=== PATIENT | female | born 1990 ===

== ENCOUNTER 2021-02-25 03:16 | Emergency (ER) | payer MEDICARE, OTHER ==
[~2021-02-25] VITALS: Ht 167.6 cm; Wt 59.0 kg
--- NOTE | 2021-02-25 03:16 | NUR ---
Prior to being triaged, patient was yelling and screaming in the waiting. Hitting the glass window by the registration window. Hospital's secruity was called and greenhouse manager. [employer] was also called by hospital's secruity.
[2021-02-25] MEDS ORDERED: LORAZEPAM 2 MG/1 ML VIAL IV ONE (04:15)
[2021-02-25] MEDS ORDERED: HALOPERIDOL LACTATE 5 MG/1 ML VIAL IV ONE (04:15)
--- NOTE | 2021-02-25 04:25 | NUR ---
Patient was calm after speaking with [employer] in the waiting room and was able to be brought back to be triaged.
[2021-02-25] MEDS ORDERED: diphenhydrAMINE 50 MG/1 ML VIAL IV ONE (04:30)
--- NOTE | 2021-02-25 04:35 | NUR ---
Patient refusing to taking IV meds stating "I want pills instead."
[2021-02-25 04:36] LABS: HEMATOCRIT 37.6 % (31.2-41.9); MEAN CORPUSCULAR HEMOGLOBIN 31.5 uug (24.7-32.8); MEAN CORPUSCULAR VOLUME 89.7 fL (75.5-95.3); PLATELET COUNT (AUTO) 313 K/uL (179-408)
[2021-02-25] MEDS ORDERED: LORAZEPAM 1 MG TABLET ONE (04:41)
[2021-02-25] MEDS ORDERED: HALOPERIDOL 5 MG TABLET ONE (04:41)
[2021-02-25] MEDS ORDERED: diphenhydrAMINE 50 MG CAPSULE ONE (04:42)
[2021-02-25] MEDS ORDERED: LORAZEPAM 0.5 MG TABLET PO ONE (04:45)
[2021-02-25] MEDS ORDERED: diphenhydrAMINE 50 MG CAPSULE PO ONE (04:45)
[2021-02-25] MEDS ORDERED: HALOPERIDOL 0.5 MG TABLET PO ONE (04:45)
[2021-02-25 04:55] LABS: ETHANOL < 3 MG/DL (0-0)
[2021-02-25 04:58] LABS: ALANINE AMINOTRANSFERASE 21 U/L (14-59); ALKALINE PHOSPHATASE 53 U/L (50-136); ASPARTATE AMINOTRANSFERASE 15 U/L (15-37); BILIRUBIN,DIRECT 0.1 mg/dL (0.0-0.2); BILIRUBIN,TOTAL 0.3 mg/dL (0.2-1.0); CARBON DIOXIDE 27 mmol/L (21-32); CHLORIDE 105 mmol/L (98-107); CREATININE 0.8 mg/dL (0.6-1.3); GLUCOSE 105 mg/dL (74-106); POTASSIUM 3.1 mmol/L (3.5-5.1); TOTAL PROTEIN, SERUM 7.1 g/dL (6.4-8.2)
[2021-02-25 04:59] LABS: ACETAMINOPHEN < 2.0 ug/mL (10-30)
[2021-02-25 05:17] LABS: UREA NITROGEN, BLOOD 13 mg/dL (7-18)
[2021-02-25] MEDS ORDERED: POTASSIUM CHLORIDE 20 MEQ TAB.PRT.SR PO ONE (07:15)
--- NOTE | 2021-02-25 07:15 | NUR ---
Pt sleeping with NAD noted.
--- NOTE | 2021-02-25 07:45 | NUR ---
Note mickey in ED - 02/25/21 at 0750 by JAYLIN SBAR report given to RN. Holli Pt resting with NAD noted at this time.
--- NOTE | 2021-02-25 08:30 | NUR ---
Pt eating breakfast, NAD noted.
[2021-02-25] MEDS ORDERED: POTASSIUM CHLORIDE 20 MEQ POWDER PACKET ONE (08:52)
--- NOTE | 2021-02-25 09:20 | NUR ---
IV removed. Catheter intact and site benign. Pressure and 4x4 gauze applied to site. No bleeding noted.
--- NOTE | 2021-02-25 09:23 | NUR ---
Patient discharged to home in stable condition. Written and verbal after care instructions given. Patient verbalizes understanding of instructions. Stressed follow up or return to ER for worsening s/s.
== END 2021-02-25 09:29 | disposition home or self-care (01) ==
LOC: ER 03:29
DX: F15.159 Other stimulant abuse with stimulant-induced psychotic disorder, unspecified (principal); Z59.0 Homelessness; E87.6 Hypokalemia; Z82.49 Family history of ischemic heart disease and other diseases of the circulatory system; Z72.0 Tobacco use; F20.9 Schizophrenia, unspecified; F90.9 Attention-deficit hyperactivity disorder, unspecified type; F43.10 Post-traumatic stress disorder, unspecified; Z88.8 Allergy status to other drugs, medicaments and biological substances; Z20.822 Contact with and (suspected) exposure to COVID-19
CPT/HCPCS: 36415; 85025; 93005; A4663; G0480; Q0163